=== PATIENT | female | born 1960 | race Caucasian/White ===

== ENCOUNTER 2025-09-22 14:03 | Outpatient (AMB) | payer OTHER, SELFPAY ==
--- NOTE | 2025-09-22 14:16 | MHC.PC.OV ---
Vital Signs 09/22/25 14:21 Height 5 ft 3.27 in Weight 142 lb BMI 24.9 BP 120/72 Blood Pressure Location Rt brachial Position Sitting Respiration 14 Pulse 63 Pulse Source Pulse Oximeter Temp 97.9 F Temp Source Oral Pulse Oximetry (%) 98 Oxygen Delivery Method Room Air Intake Visit Reasons: colesterol Intake Note: New patient visit Daycare Assistant Required: No Allergies No Known Allergies Allergy (Verified 09/22/25 14:18) Tobacco use date assessed: 09/22/25 Fall risk assessment: 1 Fall in past year Last assessed Fall Risk: 09/22/25 Dental Screening Dental Screen Date: 09/22/25 Did you have a dental visit in the last 12 months?: Yes Did you have a dental problem in the last 6 months where you did not have access to dental care?: No Was dental information given to patient?: Patient has dentist HPI HPI Comments History of Present Illness Details The patient is a 65 year old female with a past medical history of hyperlipidemia presenting to [facility]. Seen in 2023 in [place] relocated back to [place]. Living in [place], [place] HLD-Patient was on pravastatin 10mg then ran out of refills. Due for mammo Last colonoscopy [place] told to repeat 3 years. She believes this was at least 3 years ago Reports she is overdue for pap ROS CONSTITUTIONAL: Denies weight loss, fever and chills. HEENT: Denies changes in vision and hearing. RESPIRATORY: Denies SOB and cough. CV: Denies palpitations and CP GI: Denies abdominal pain, nausea, vomiting and diarrhea. : Denies dysuria and urinary frequency. MSK: Denies new myalgia and joint pain. SKIN: Denies rash and pruritus. NEUROLOGICAL: Denies headache PSYCHIATRIC: Denies recent changes in mood. PHYSICAL EXAM: GENERAL: Alert and oriented x 3. NAD EYES: EOMI. Anicteric. HENT: Moist mucous membranes. No scleral icterus. No cervical lymphadenopathy. LUNGS: Clear to auscultation bilaterally. CARDIOVASCULAR: Regular rate and rhythm. No murmur. No JVD. ABDOMEN: Soft, non-tender +bs EXTREMITIES: No edema. Non-tender. SKIN: No rashes or lesions. Warm. NEUROLOGIC: No focal neurological deficits. CN II-XII grossly intact PSYCHIATRIC: Cooperative. 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 1. Little interest or pleasure in doing things: not at all 2. Feeling down, depressed, or hopeless: not at all 3. Trouble falling or staying asleep, or sleeping too much: not at all 4. Feeling tired or having little energy: not at all 5. Poor appetite or overeating: not at all 6. Feeling bad about yourself - or that you are a failure or have let yourself or your family down: not at all 7. Trouble concentrating on things, such as reading the newspaper or watching television: not at all 8. Moving or speaking so slowly that other people could have noticed. Or the opposite - being so fidgety or restless that you have been moving around a lot more than usual: not at all 9. Thoughts that you would be better off or of hurting yourself in some way: not at all Total score: 0 Depression Screening Interpretation: Negative Depression Screening Done: Yes 33639 - PHQ-9 Billing: Yes Source: Developed by Drs. Gil Garcia, Martha Quinteros, Alvarado Moctezuma and colleagues, with an educational yoli from [employer]. Thrive Questionnaire Date Thrive assessed: 09/15/25 I am a: Patient What is your living situation today?: I have a steady place to live Within the past 12 months, did the food you bought not last and you didn't have the money to get more?: Never true Within the past 12 months, did you worry whether your food would run out before you got money to buy more?: Never true Do you have trouble paying for medicines?: No Do you have trouble getting transportation to medical appointments?: No Do you have trouble paying your heating and electricity bill?: No Do you have trouble taking care of your child, family member or friend?: No Do you have trouble with day-to-day activities such as bathing, preparing meals, shopping, managing finances, etc.?: No Are you currently unemployed and looking for a job?: No Are you interested in more education?: No Please select the resources that you would like help with: None Currently or been in a relationship where the following occur: No concerns reported THRIVE Score: 0 AUDIT C Alcohol Use Questionnaire (AUDIT-C) 1. How often do you have a drink containing alcohol?: 2-3 times a week 2. How many drinks containing alcohol do you have on a typical day when you are drinking?: 1 or 2 3. How often do you have six or more drinks on one occasion?: Never Total Score: 3 CHANTEL-7 AMB Questionnaire CHANTEL-7 Feeling nervous, anxious, or on edge: 0 = Not at all Not being able to stop or control worryin = Not at all Worrying too much about different things: 0 = Not at all Trouble relaxin = Not at all Being so restless that it is hard to sit still: 0 = Not at all Becoming easily annoyed or irritable: 0 = Not at all Feeling afraid as if something awful might happen: 0 = Not at all Total CHANTEL-7 score (0-4 normal; 5-9 mild; 10-14 moderate; 15-21 severe): 0 Source: Developed by Drs. Gil Garcia, Martha Quinteros, Alvarado Moctezuma and colleagues, with an educational yoli from [employer]. Physical exam (Primary Care) Vital Signs: Last Vital Signs Temp 97.9 F 09/22/25 14:21 Pulse 63 09/22/25 14:21 Resp 14 09/22/25 14:21 BP 120/72 09/22/25 14:21 Pulse Ox 98 09/22/25 14:21 Oxygen Delivery Method Room Air 09/22/25 14:21 BMI result Body Mass Index 24.9 Tobacco/Smoking Status: Tobacco use Status Tobacco use date assessed 09/22/25 09/22/25 14:24 Patient Tobacco Use Status Never used Tobacco 09/22/25 14:24 e-Cigarette/Vaping Use Never Used 09/22/25 14:24 PHQ-9: PHQ-9 Score PHQ-9: Total score 0 09/22/25 15:20 Depression Screening Interpretation: Negative Thrive Assessment: Date of Thrive Assessment Date Thrive assessed 09/15/25 09/22/25 14:16 Currently or been in a relationship where the following occur: No concerns reported Coding Level of Care Code New Pt Level 4 (48294) Complex EM visit Add On G2211 Diagnoses Encounter to establish care Z76.89 Hyperlipidemia, unspecified hyperlipidemia type E78.5 Hyperlipidemia type: unspecified Elevated glucose R73.09 History of colon polyps Z86.010 Additional Codes PHQ-9 - 68022 - PHQ-9 Billing: Yes ([id number]) Assessment & Plan Assessment & Plan (1) Encounter to establish care: Code(s): Z76.89 - Persons encountering health services in other specified circumstances (2) Hyperlipidemia: Code(s): E78.5 - Hyperlipidemia, unspecified Category: Medical Qualifiers: Hyperlipidemia type: unspecified Qualified Code(s): E78.5 - Hyperlipidemia, unspecified (3) Elevated glucose: Code(s): R73.09 - Other abnormal glucose Category: Medical (4) History of colon polyps: Code(s): Z86.010 - Personal history of colon polyps Category: Medical Plan 65 year old to establish care Past medical, surgical, social reviewed Hyperlipidemia-check lipids. Likely needs to restart pravastatin Labs ordered Mammo, GI referral Orders: Orders Complete Blood Count Auto Diff Today R73.09 - Other abnormal glucose, Z13.0 - Encounter for screening for diseases of the blood and blood-forming organs and certain disorders involving the immune mechanism, Z13.228 - Encounter for screening for other metabolic disorders TSH reflex Free T4 Today E78.5 - Hyperlipidemia, unspecified, R73.09 - Other abnormal glucose, Z13.228 - Encounter for screening for other metabolic disorders Hemoglobin A1c Today E78.5 - Hyperlipidemia, unspecified, R73.09 - Other abnormal glucose Comprehensive Met. Panel Today E78.5 - Hyperlipidemia, unspecified, R73.09 - Other abnormal glucose, Z86.010 - Personal history of colon polyps Lipid Panel Today E78.5 - Hyperlipidemia, unspecified, R73.09 - Other abnormal glucose MM tomosynthesis screening BI Today Z12.31 - Encounter for screening mammogram for malignant neoplasm of breast Referrals Gastroenterology Referral Z86.010 - Personal history of colon polyps [employer] Referral Z12.4 - Encounter for screening for malignant neoplasm of cervix
[2025-09-22 14:21] VITALS: BP 120/72; PULSE 63; RESP 14; TEMP 36.6; O2SAT 98; BMI 24.9
== END 2025-09-22 14:55 | disposition home or self-care (01) ==
LOC: HO.HMCFM 14:04
PROVIDERS: PCP Internal Medicine; Visit Provider Internal Medicine
DX: Z76.89 Persons encountering health services in other specified circumstances (principal); E78.5 Hyperlipidemia, unspecified; R73.09 Other abnormal glucose; Z86.0100 Personal history of colon polyps, unspecified

== ENCOUNTER → 2025-09-22 14:03 | Outpatient (BNVA) | payer MEDICARE, SELFPAY | PROVIDERS: PCP Internal Medicine; Visit Provider Internal Medicine | DX: Z76.89 Persons encountering health services in other specified circumstances (principal); E78.5 Hyperlipidemia, unspecified; R73.09 Other abnormal glucose; Z79.899 Other long term (current) drug therapy; Z86.0101 Personal history of adenomatous and serrated colon polyps; Z13.31 Encounter for screening for depression | CPT/HCPCS: 96127; 99202 ==